=== PATIENT | female | born 1950 | race Caucasian/White ===

== ENCOUNTER 2017-02-08 16:32 | Outpatient (CLI) | payer MEDICARE | END 2017-02-08 16:33 | disposition home or self-care (01) | LOC: LAB 16:32 | PROVIDERS: ATTEND Internal Medicine | DX: M79.662 Pain in left lower leg (principal); M79.661 Pain in right lower leg | CPT/HCPCS: 36415; 85379 ==

== ENCOUNTER 2019-06-15 14:53 | Outpatient (CLI) | payer MEDICARE ==
--- NOTE | 2019-06-15 15:51 | Ultrasound Report ---
Reason: R LE EDEMA, R LE PAIN Procedure Date: 06/15/2019 Accession Number: [id number] / [id number] Procedure: US - Duplex Ext Veins Right CPT Code: FULL RESULT: EXAM: RIGHT LOWER EXTREMITY VENOUS ULTRASOUND EXAM DATE: 06/15/2019 03:07 PM. CLINICAL HISTORY: R LE EDEMA, R LE PAIN. COMPARISON: None. TECHNIQUE: Real-time sonographic vascular imaging was performed by the director of development and marketing through the lower extremity utilizing both color-flow and Doppler spectral analysis. Multiple assistance representative static images were saved for review. FINDINGS: Common Femoral Vein (CFV): Normal. CFV-GSV Junction: Normal. Profunda Femoral Vein (PFV): Normal. Femoral Vein (FV) Prox: Normal. Femoral Vein (FV) Mid: Normal. Femoral Vein (FV) Dist: Normal. Popliteal Vein: Normal. Posterior Tibial Veins: Normal. Peroneal Veins: Normal. Other: Laterally at the knee there is a fluid collection approximately 1 cm deep from the skin. This measures 3.6 x 0.8 x 2.4 cm. Correlate for bursitis. IMPRESSION: Negative for right lower extremity DVT. Possible bursitis at the lateral aspect of the knee. RADIA
== END 2019-06-15 14:54 | disposition home or self-care (01) ==
LOC: DI 14:53
PROVIDERS: ATTEND Internal Medicine
DX: M79.661 Pain in right lower leg (principal); R60.0 Localized edema

== ENCOUNTER 2019-11-05 07:00 | Outpatient (CLI) | payer MEDICARE ==
[2019-11-05 20:45] LABS: CANDIDA GROUP DNA NEGATIVE (NEGATIVE); CANDIDA KRUSEI DNA NEGATIVE (NEGATIVE); TRICHOMONAS VAGINALIS DNA NEGATIVE (NEGATIVE)
== END 2019-11-05 23:59 | disposition home or self-care (01) ==
LOC: LAB.R 07:00
PROVIDERS: ATTEND Advanced Practice Midwife
DX: N95.0 Postmenopausal bleeding (principal); N89.8 Other specified noninflammatory disorders of vagina
CPT/HCPCS: 87661; 87801

== ENCOUNTER 2019-11-27 07:00 | Outpatient (CLI) | payer MEDICARE | END 2019-11-27 23:59 | disposition home or self-care (01) | LOC: LAB.R 07:00 | PROVIDERS: ATTEND Obstetrics & Gynecology | DX: R39.9 Unspecified symptoms and signs involving the genitourinary system (principal) | CPT/HCPCS: 87086 ==

== ENCOUNTER 2019-12-07 11:35 | Outpatient (CLI) | payer MEDICARE ==
--- NOTE | 2019-12-07 12:45 | Ultrasound Report ---
Reason: VAGINAL BLEEDING Procedure Date: 12/07/2019 Accession Number: [id number] / [id number] Procedure: US - Pelvic w/Transvaginal CPT Code: Final Report FULL RESULT: EXAM: PELVIC ULTRASOUND EXAM DATE: 12/07/2019 11:48 AM. CLINICAL HISTORY: Postmenopausal bleeding. COMPARISON: None. TECHNIQUE: Realtime transabdominal pelvic scan performed to identify the uterus and adnexa and as an overview of other pelvic structures, followed by transvaginal scan to provide greater detail of the uterus and adnexa, with static image documentation. FINDINGS: Uterus: 6.2 x 3.3 x 4.7 cm, volume 49 cc. Retroverted position. Normal overall size and echotexture. Masses: Right fundal intramural fibroid 1.3 x 1.2 x 1.0 cm. Endometrium: 2 mm. No masses or thickening. A tiny ovoid subendometrial cyst at lower uterine segment anterior to the stripe measures 1 x 3 x 3 mm. Cervix: Several nabothian cysts present measuring up to 8 mm. Tiny echogenic foci are present adjacent to the endocervical canal, possibly calcifications. Right Ovary: 0.8 x 1.7 x 1.0 cm, volume 0.7 cc. Normal echotexture and blood flow. Left Ovary: 2.1 x 0.8 x 1.0 cm, volume 0.8 cc. Normal echotexture and blood flow. Free Fluid: None. Other: None. IMPRESSION: 1. No endometrial masses or thickening. 2. 1.3 cm intramural fibroid. 3. 3 mm subendometrial cyst lower uterine segment. 4. Nabothian cysts and calcifications in the cervix noted. 5. Adnexae within normal limits. RADIA
== END 2019-12-07 11:36 | disposition home or self-care (01) ==
LOC: DI 11:35
PROVIDERS: ATTEND Obstetrics & Gynecology
DX: D25.1 Intramural leiomyoma of uterus (principal); N88.8 Other specified noninflammatory disorders of cervix uteri
CPT/HCPCS: 76830; 76856

== ENCOUNTER 2020-07-07 10:07 | Outpatient (CLI) | payer MEDICARE | END 2020-07-07 10:08 | disposition critical access hospital (66) | LOC: EMS 10:07 | PROVIDERS: ATTEND Surgery | DX: R47.81 Slurred speech (principal); R53.1 Weakness; R29.810 Facial weakness; R32 Unspecified urinary incontinence; R51.9 Headache, unspecified | CPT/HCPCS: A0425; A0429 ==

== ENCOUNTER 2020-11-13 15:29 | Outpatient (CLI) | payer MEDICARE | END 2020-11-13 15:30 | disposition home or self-care (01) | LOC: CAM 15:29 | PROVIDERS: ATTEND Internal Medicine | DX: M79.602 Pain in left arm (principal) | CPT/HCPCS: 97810; 97811 ==

== ENCOUNTER 2020-11-20 14:50 | Outpatient (CLI) | payer MEDICARE | END 2020-11-20 14:51 | disposition home or self-care (01) | LOC: CAM 14:50 | PROVIDERS: ATTEND Internal Medicine | DX: M79.602 Pain in left arm (principal) | CPT/HCPCS: 97810; 97811 ==

== ENCOUNTER 2020-12-04 13:08 | Outpatient (CLI) | payer MEDICARE | END 2020-12-04 13:09 | disposition home or self-care (01) | LOC: CAM 13:08 | PROVIDERS: ATTEND Internal Medicine | DX: M79.602 Pain in left arm (principal) | CPT/HCPCS: 97810; 97811 ==

== ENCOUNTER 2021-01-08 14:46 | Outpatient (CLI) | payer MEDICARE | END 2021-01-08 14:47 | disposition home or self-care (01) | LOC: CAM 14:46 | PROVIDERS: ATTEND Internal Medicine | DX: M79.602 Pain in left arm (principal) | CPT/HCPCS: 97810; 97811 ==

== ENCOUNTER 2021-02-19 13:17 | Outpatient (CLI) | payer MEDICARE ==
--- NOTE | 2021-02-20 11:13 | Mammography Report ---
BILATERAL DIGITAL SCREENING MAMMOGRAM 3D/2D: 02/19/2021 CLINICAL: Routine screening. Comparison is made to exams dated: 04/22/2016 mammogram, 07/11/2013 mammogram, and 09/02/2010 mammogram - [facility]. There are scattered fibroglandular elements in both breasts. No significant masses, calcifications, or other findings are seen in either breast. There has been no significant interval change. IMPRESSION: NEGATIVE There is no mammographic evidence of malignancy. A 1 year screening mammogram is recommended. This exam was interpreted at Station ID: [id number]. NOTE: For mammograms, a report in lay terms will be sent to the patient. Approximately 15% of breast malignancies will not be visualized mammographically. In the management of a palpable breast mass, a negative mammogram must not discourage biopsy of a clinically suspicious lesion. Electronically Signed By: Lebron Jones M.D. ar/huyrad:02/19/2021 14:05:32 ACR BI-RADS Category 1: Negative 3341F PARENCHYMAL PATTERN: (A) - The breast(s) demonstrate(s) scattered fibroglandular densities. BI-RADS CATEGORY: (1) - 1 RECOMMENDATION: (ANNUAL) - Recommend routine annual screening mammography. [id number] 1 year screening LATERALITY: (B)
== END 2021-02-19 13:18 | disposition home or self-care (01) ==
LOC: DI 13:17
DX: Z12.31 Encounter for screening mammogram for malignant neoplasm of breast (principal)

== ENCOUNTER 2021-05-14 16:08 | Outpatient (CLI) | payer MEDICARE | END 2021-05-14 16:09 | disposition home or self-care (01) | LOC: COV 16:08 | PROVIDERS: ATTEND Family Medicine | DX: Z20.822 Contact with and (suspected) exposure to COVID-19 (principal) ==

== ENCOUNTER 2021-06-18 12:07 | Outpatient (CLI) | payer MEDICARE | END 2021-06-18 12:08 | disposition critical access hospital (66) | LOC: EMS 12:07 | DX: Z04.3 Encounter for examination and observation following other accident (principal); M25.552 Pain in left hip | CPT/HCPCS: A0425; A0429 ==

== ENCOUNTER 2021-06-18 12:17 | Emergency (ER) | payer MEDICARE ==
--- NOTE | 2021-06-18 12:26 | ED Physician Documentation ---
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 The patient states that she was getting out of bed and slipped on her laminate floor and fell squarely onto the left hip. She did not hit her head, denies any other injuries including head, neck, shoulder, back or other extremity injuries. Her is a physical therapist and they were monitoring at home because he did not feel it was broken but the pain persisted into the afternoon therefore she came into the ER for evaluation. Review of Systems Ten Systems: 10 systems reviewed and negative Musculoskeletal: reports: Extremity pain, Joint pain, Pain with weight bearing. denies: Neck pain, Back pain, Extremity swelling, Joint swelling PD PAST MEDICAL HISTORY - Past Medical History Past Medical History: Yes Cardiovascular: Hypertension (on HCTZ only) Respiratory: None Neuro: None Endocrine/Autoimmune: None GI: None SUPERVISOR ORDER TAKERS: None : None HEENT: None Psych: None Musculoskeletal: None Derm: None - Past Surgical History Past Surgical History: No - Present Medications Home Medications: Ambulatory Orders Medication Instructions Recorded Confirmed hydroCHLOROthiazide 07/07/20 [Hydrochlorothiazide] - Allergies Allergies/Adverse Reactions: Allergies Allergy/AdvReac Type Severity Reaction Status Date / Time Sulfa (Sulfonamide Allergy Unknown Verified 06/18/21 12:25 Antibiotics) - Social History Does the pt smoke?: No Smoking Status: Never smoker Does the pt drink ETOH?: No Does the pt have substance abuse?: No - Immunizations Immunizations are current?: Yes - POLST Patient has POLST: No POLST Status: Full Code PD ED PE NORMAL - Vitals Vital signs reviewed: Yes - General General: Alert and oriented X 3, No acute distress, Well developed/nourished - HEENT HEENT: Atraumatic, Pharynx benign - Neck Neck: Supple, no meningeal sign, No bony TTP, No JVD - Cardiac Cardiac: RRR, No murmur - Respiratory Respiratory: No respiratory distress, Clear bilaterally - Abdomen Abdomen: Normal bowel sounds, Soft, Non tender, Non distended - Back Back: No spinal TTP - Derm Derm: Normal color, Warm and dry, No rash - Extremities Extremities: No deformity, No edema, No calf tenderness / cord, Other (Tender left hip, no obvious deformity, no shortening or rotation. Normal flexion extension of lower extremities however pain with movement of the left hip. Unable to bear weight due to pain left hip). No: No tenderness to palpate, Normal ROM s pain - Neuro Neuro: Alert and oriented X 3 Eye Opening: Spontaneous Motor: Obeys Commands Verbal: Oriented GCS Score: 15 - Psych Psych: Normal mood, Normal affect Results - Vitals Vitals: Vital Signs - 24 hr 06/18/21 12:21 Temperature 36.2 C L Heart Rate 78 Respiratory 18 Rate Blood Pressure 137/85 H O2 Saturation 99 Oxygen O2 Source Room air - Labs Labs: Laboratory Tests 06/18/21 06/18/21 13:40 13:40 WBC 8.7 RBC 4.63 Hgb 14.2 Hct 42.4 MCV 91.6 MCH 30.7 MCHC 33.5 RDW 12.9 Plt Count 181 MPV 10.2 Neut # (Auto) 6.6 Lymph # (Auto) 1.3 [place] # (Auto) 0.7 Eos # (Auto) 0.1 Baso # (Auto) 0.0 Absolute Nucleated RBC 0.00 Nucleated RBC % 0.0 Sodium 140 Potassium 3.6 Chloride 104 Carbon Dioxide 26 Anion Gap 10.0 BUN 14 Creatinine 0.5 Estimated GFR (MDRD) 122 Glucose 108 H Calcium 9.1 PD MEDICAL DECISION MAKING - ED course Complexity details: reviewed results, re-evaluated patient, considered differential, d/w patient, d/w family ED course: 70 year old female who fell while getting out of bed today and sustained a left subtrochanteric femur fracture. We unfortunately do not have Ortho on-call today or tomorrow therefore I spoke with the orthopedic surgeon at [facility], Dr. Goldman, who reviewed images and kindly will accept the patient if there are beds available under hospitalist service. Will check with hospitalist team at [facility]. Patient to be n.p.o. after midnight. We will continue as needed pain medication and supportive measures here. Departure - Departure Disposition: 02 Transfer Acute Care Hosp Clinical Impression: Trochanteric fracture of left femur Qualifiers: Encounter type: initial encounter Fracture type: closed Qualified Code(s): S72.102A - Unspecified trochanteric fracture of left femur, initial encounter for closed fracture Condition: Good
--- NOTE | 2021-06-18 13:14 | XRAY Report ---
PROCEDURE: Hip w/Pelvis 2-3V LT INDICATIONS: fall, left hip pain TECHNIQUE: AP pelvis with lateral view(s) of the bilateral hip(s). COMPARISON: None. FINDINGS: Bones: There is a nondisplaced trochanteric/subtrochanteric fracture of the left hip. No dislocations . Pelvic ring appears intact. No suspicious bony lesions. Soft tissues: The visualized bowel gas pattern is normal. No suspicious soft tissue calcifications. IMPRESSION: Nondisplaced trochanteric/subtrochanteric fracture of the left hip. Reviewed by: Randall Leonard MD on 06/18/2021 1:13 PM PDT Approved by: Randall Leonard MD on 06/18/2021 1:13 PM PDT Station ID: [id number]
[2021-06-18] MEDS ORDERED: MORPHINE 2 MG/ML CARPUJECT IVP STA (13:20)
[2021-06-18] MEDS ORDERED: ONDANSETRON 4 MG/2 ML VIAL IVP STA (13:20)
[2021-06-18 13:50] LABS: BASOPHILS % (AUTO) 0.5 %; EOSINOPHILS # (AUTO) 0.1 10^3/uL (0.0-0.7); HCT - HEMATOCRIT 42.4 % (37.0-47.0); HGB - HEMOGLOBIN 14.2 g/dL (12.0-16.0); LYMPHOCYTES # (AUTO) 1.3 10^3/uL (1.5-3.5); LYMPHOCYTES % (AUTO) 14.9 %; MEAN CORPUSCULAR HEMOGLOBIN 30.7 pg (27.0-31.0); MEAN CORPUSCULAR HGB CONC 33.5 g/dL (32.0-36.0); MEAN CORPUSCULAR VOLUME 91.6 fL (81.0-99.0); MEAN PLATELET VOLUME 10.2 fL (7.9-10.8); MONOCYTES # (AUTO) 0.7 10^3/uL (0.0-1.0); MONOCYTES % (AUTO) 7.6 %; NEUTROPHILS # (AUTO) 6.6 10^3/uL (1.5-6.6); NEUTROPHILS % (AUTO) 75.7 %; PLT - PLATELET COUNT 181 10^3/uL (130-450); RED BLOOD COUNT 4.63 10^6/uL (4.20-5.40); RED CELL DISTRIBUTION WIDTH 12.9 % (12.0-15.0); WHITE BLOOD COUNT 8.7 x10^3/uL (4.8-10.8)
[2021-06-18 14:02] LABS: CALCIUM 9.1 mg/dL (8.5-10.3); CREATININE 0.5 mg/dL (0.4-1.0); POTASSIUM 3.6 mmol/L (3.5-5.0)
[2021-06-18 16:11] LABS: B. PARAPERTUSSIS- RESP PCR PAN NOT DETECTED; B. PERTUSSIS- RESP PCR PANEL NOT DETECTED; C. PNEUMONIAE- RESP PCR PANEL NOT DETECTED; CORONAVIRUS 229E-RESP PCR NOT DETECTED; CORONAVIRUS HKU1-RESP PCR NOT DETECTED; CORONAVIRUS NL63-RESP PCR NOT DETECTED; CORONAVIRUS OC43-RESP PCR NOT DETECTED; HUMAN METAPNEUMOVIRUS NOT DETECTED; INFLUENZA A- RESP PCR PANEL NOT DETECTED; INFLUENZA B - RESP PCR PANEL NOT DETECTED; M. PNEUMONIAE- RESP PCR PANEL NOT DETECTED; PARAINFLUENZA VIRUS 1 NOT DETECTED; PARAINFLUENZA VIRUS 2 NOT DETECTED; PARAINFLUENZA VIRUS 3 NOT DETECTED; PARAINFLUENZA VIRUS 4 NOT DETECTED; RHINOVIRUS/ENTEROVIRUS NOT DETECTED; RSV- RESP PCR PANEL NOT DETECTED; SARS-CoV-2 -RESP PCR PANEL NOT DETECTED
[2021-06-18] MEDS ORDERED: MORPHINE 2 MG/ML CARPUJECT IVP PRN (16:14)
[2021-06-18 19:19] VITALS: BP 138/92
== END 2021-06-18 19:17 | disposition short-term general hospital (02) ==
LOC: ED 12:17
DX: S72.102A Unspecified trochanteric fracture of left femur, initial encounter for closed fracture (principal); W01.0XXA Fall on same level from slipping, tripping and stumbling without subsequent striking against object, initial encounter; Y93.89 Activity, other specified; Y92.003 Bedroom of unspecified non-institutional (private) residence as the place of occurrence of the external cause; Z20.822 Contact with and (suspected) exposure to COVID-19
CPT/HCPCS: 0202U; 36415; 80048; 85025; 96374; 96375; 96376; 99283

== ENCOUNTER 2021-06-18 19:16 | Outpatient (CLI) | payer MEDICARE | END 2021-06-18 19:17 | disposition short-term general hospital (02) | LOC: EMS 19:16 | PROVIDERS: ATTEND Emergency Medicine | DX: S72.102A Unspecified trochanteric fracture of left femur, initial encounter for closed fracture (principal); W01.0XXA Fall on same level from slipping, tripping and stumbling without subsequent striking against object, initial encounter; Y93.01 Activity, walking, marching and hiking; Y92.009 Unspecified place in unspecified non-institutional (private) residence as the place of occurrence of the external cause | CPT/HCPCS: A0425; A0428 ==

== ENCOUNTER 2021-06-29 12:08 | Outpatient (CLI) | payer MEDICARE ==
--- NOTE | 2021-06-29 12:58 | XRAY Report ---
PROCEDURE: Hip w/Pelvis 2-3V LT INDICATIONS: Left HIP PAIN AFTER FALL TECHNIQUE: AP pelvis with lateral view(s) of the left hip(s). COMPARISON: June 18, 2021. FINDINGS: BONES/JOINTS: The fracture line is not well seen. An intramedullary aminta traversing the right proximal femur. No appreciable lucency to suggest loosening. No widening of the pubic symphysis. The sacroiliac joints are symmetric. The femoral heads are normal ly seated within the acetabulum. SOFT TISSUES: No focal abnormality. IMPRESSION: 1.No acute osseous abnormality of the pelvis. Reviewed by: Homar Walsh MD on 06/29/2021 12:57 PM PDT Approved by: Homar Walsh MD on 06/29/2021 12:57 PM PDT Station ID: [id number]
== END 2021-06-29 12:09 | disposition home or self-care (01) ==
LOC: DI 12:08
PROVIDERS: ATTEND Internal Medicine
DX: M25.552 Pain in left hip (principal); Z91.81 History of falling; Z87.81 Personal history of (healed) traumatic fracture

== ENCOUNTER 2021-10-26 15:11 | Outpatient (CLI) | payer MEDICARE ==
--- NOTE | 2021-10-26 17:23 | DEXA Report ---
PROCEDURE: Dexa Spine and/or Hip INDICATIONS: OSTEOPENIA TECHNIQUE: Dual energy x-ray absorptiometry (DXA) was performed on a [employer] System. Regions measur ed are the AP Spine, femoral neck, and if needed forearm. COMPARISON: DEXA 07/16/2016. FINDINGS: Lumbar Spine: Bone Mineral Density 0.973 g/cm/cm,T score -1.7, osteopenia Left Hip: Bone Mineral Density 0.590 g/cm/cm,T score -3.2, osteoporosis Left Femoral Neck: Bone Mineral Density 0.644 g/cm/cm, T score -2.8, osteoporosis (T score greater or equal to -1.0: NORMAL) (T score from -1.1 to -2.4: OSTEOPENIA) (T score less than or equal to -2.5 to: OSTEOPOROSIS) Impression: Decreased bone mineral density within the osteoporotic range at the left hip and left femoral neck an d within the osteopenic range at the lumbar spine. Bone marrow density has decreased when compared to the prior exam from 07/16/2016. Patients with diagnosis of osteoporosis or osteopenia should have regular bone mineral density assess ment. For those eligible for Medicare, routine testing is allowed once every 2 years. Testing frequ ency can be increased for patients who have rapidly progressing disease or for those who are receivin g medical therapy to restore bone mass. Reviewed by: Lebron Jones MD on 10/26/2021 5:22 PM PST Approved by: Lebron Jones MD on 10/26/2021 5:22 PM PST Station ID: [id number]
== END 2021-10-26 15:12 | disposition home or self-care (01) ==
LOC: DI 15:11
PROVIDERS: ATTEND Internal Medicine
DX: M81.0 Age-related osteoporosis without current pathological fracture (principal)

== ENCOUNTER 2022-02-09 13:24 | Outpatient (CLI) | payer MEDICARE | END 2022-02-09 13:25 | disposition home or self-care (01) | LOC: LAB 13:24 | PROVIDERS: ATTEND Internal Medicine | DX: I10 Essential (primary) hypertension (principal); F32.A Depression, unspecified; M21.40 Flat foot [pes planus] (acquired), unspecified foot; R53.83 Other fatigue; M81.0 Age-related osteoporosis without current pathological fracture | CPT/HCPCS: 82306 ==

== ENCOUNTER 2022-03-15 13:09 | Outpatient (CLI) | payer MEDICARE ==
--- NOTE | 2022-03-26 12:34 | Mammography Report ---
BILATERAL DIGITAL SCREENING MAMMOGRAM 3D/2D: 03/15/2022 CLINICAL: Routine screening. Comparison is made to exams dated: 02/19/2021 mammogram, 04/22/2016 mammogram, 07/11/2013 mammogram, a nd 09/02/2010 mammogram - [facility]. There are scattered fibroglandular elements in both breasts. No significant masses, calcifications, or other findings are seen in either breast. There has been no significant interval change. IMPRESSION: NEGATIVE There is no mammographic evidence of malignancy. A 1 year screening mammogram is recommended. Based on the Tyrer Cuzick model (a risk assessment model) the patients lifetime risk is 5.7% and her 10 year risk is 3.9%. According to the ACR, ACS, and NCCN guidelines, an annual breast MRI exam fabi g with mammogram is recommended if the patients lifetime risk is 20% or greater. This exam was interpreted at Station ID: [id number]. NOTE: For mammograms, a report in lay terms will be sent to the patient. Approximately 15% of breast malignancies will not be visualized mammographically. In the management of a palpable breast mass, a negative mammogram must not discourage biopsy of a clinically suspicious lesion. Electronically Signed By: Rehan Land acr/penrad:03/25/2022 10:12:45 ACR BI-RADS Category 1: Negative 3341F PARENCHYMAL PATTERN: (A) - The breast(s) demonstrate(s) scattered fibroglandular densities. BI-RADS CATEGORY: (1) - 1 RECOMMENDATION: (ANNUAL) - Recommend routine annual screening mammography. [id number] 1 year screening LATERALITY: (B)
== END 2022-03-15 13:10 | disposition home or self-care (01) ==
LOC: DI 13:09
PROVIDERS: ATTEND Internal Medicine
DX: Z12.31 Encounter for screening mammogram for malignant neoplasm of breast (principal)

== ENCOUNTER 2022-07-07 09:54 | Observation (INO) | payer MEDICARE ==
[2022-07-07 10:20] LABS: BASOPHILS # (AUTO) 0.1 10^3/uL (0.0-0.1); BASOPHILS % (AUTO) 0.9 %; EOSINOPHILS # (AUTO) 0.2 10^3/uL (0.0-0.7); EOSINOPHILS % (AUTO) 3.5 %; HCT - HEMATOCRIT 44.7 % (37.0-47.0); HGB - HEMOGLOBIN 14.5 g/dL (12.0-16.0); LYMPHOCYTES % (AUTO) 30.4 %; MEAN CORPUSCULAR HEMOGLOBIN 30.2 pg (27.0-31.0); MEAN CORPUSCULAR HGB CONC 32.4 g/dL (32.0-36.0); MEAN CORPUSCULAR VOLUME 93.1 fL (81.0-99.0); MEAN PLATELET VOLUME 10.2 fL (7.9-10.8); MONOCYTES # (AUTO) 0.5 10^3/uL (0.0-1.0); MONOCYTES % (AUTO) 8.3 %; NEUTROPHILS # (AUTO) 3.7 10^3/uL (1.5-6.6); NEUTROPHILS % (AUTO) 56.7 %; PLT - PLATELET COUNT 191 10^3/uL (130-450); WHITE BLOOD COUNT 6.5 x10^3/uL (4.8-10.8)
[2022-07-07 10:38] LABS: ALBUMIN/GLOBULIN RATIO 1.1 (1.0-2.2); BILIRUBIN,TOTAL 1.6 mg/dL (0.2-1.0); CREATININE 0.6 mg/dL (0.4-1.0); POTASSIUM 3.8 mmol/L (3.5-5.0); TOTAL PROTEIN 7.7 g/dL (6.7-8.2)
--- NOTE | 2022-07-07 10:40 | CT Report ---
PROCEDURE: Head W/O Stroke Protocol INDICATIONS: L sided weakness; started 0900 TECHNIQUE: Noncontrast 4.5 mm thick angled axial sections acquired from the foramen magnum to the vertex, with c oronal reformats. For radiation dose reduction, the following was used: automated exposure control, adjustment of mA and/or kV according to patient size. COMPARISON: CT orbits dated 11/15/2014 FINDINGS: Image quality: Excellent. CSF spaces: Basal cisterns are patent. No extra-axial fluid collections. Ventricles are normal in size and shape. Brain: No midline shift. No intracranial masses or hemorrhage. Aldrich-white matter interface is norm al. Extensive periventricular and deep white matter hypodensities are seen suggestive of chronic sma ll vessel ischemic changes. Superimposed acute infarction cannot be entirely excluded. Skull and face: Calvarium and visualized facial bones are intact, without suspicious lesions. Sinuses: Visualized sinuses and mastoids are clear. IMPRESSION: 1. No CT evidence of acute intracranial abnormalities. No contraindication for TPA therapy. 2. Extensive periventricular and deep white matter chronic small vessel ischemic changes. Superimpose d acute infarction cannot be entirely excluded. If indicated, MRI of brain can be done for further ev aluation of acute infarctions. Findings were reported to Dr. Juarez in the ER at 10:37 AM on 07/07/2022. This study fulfills neurological imaging criteria for inclusion or exclusion of acute stroke therapie s based on available published neurological imaging guidelines. Reviewed by: Joselito Hester MD on 07/07/2022 10:38 AM PST Approved by: Joselito Hester MD on 07/07/2022 10:38 AM PST Station ID: [id number]
--- NOTE | 2022-07-07 11:01 | CT Report ---
PROCEDURE: ANGIO HEAD W/WO INDICATIONS: L sided weakness CONTRAST: 80ml Omnipaque 300 TECHNIQUE: Precontrast 4.5 mm thick angled axial sections acquired from the foramen magnum to the vertex. Afte r the administration of intravenous contrast, 1 mm thick sections acquired through the [place] of [place] is. Postcontrast 4.5 mm thick sections then re-acquired from the foramen magnum to the vertex. 3-di mensional pmcsufc-hxfrxggff-fcyqzylfkg (MIP) and/or volume rendering reformats were acquired of the c entral intracranial vasculature. For radiation dose reduction, the following was used: automated ex posure control, adjustment of mA and/or kV according to patient size. COMPARISON: CT head, CTA neck 07/07/2022 FINDINGS: Image quality: Excellent. Anterior circulation: Intracranial internal carotid arteries are normal in size and flow. The flow within the paired anterior cerebral arteries is normal and symmetric. The flow within the middle cer ebral arteries is normal and symmetric. The anterior communicating artery is seen. No aneurysms are seen. Posterior circulation: Vertebral arteries are codominant. Visualized portions of the vertebral arteri es demonstrate normal caliber, and join to form a normal appearing basilar artery. Flow within the p osterior cerebral arteries is normal and symmetric. No aneurysms are seen. The ventricular system and cortical sulci demonstrate atrophy, consistent for patient's stated age. There are areas of hypodensity in the periventricular and subcortical white matter. There is no acut e intra or extra-axial fluid collection. No acute hemorrhage, mass lesion or midline shift. Brainst em is unremarkable. Globes are symmetrical. Sinuses are aerated. Osseous structures are intact. IMPRESSION: No areas of hemodynamically significant stenosis, vascular occlusion or aneurysmal dilation within th e anterior circulation. No areas of hemodynamically significant stenosis, vascular occlusion or aneurysmal dilation within th e posterior circulation. Reviewed by: Eri Montesinos MD on 07/07/2022 11:00 AM PST Approved by: Eri Montesinos MD on 07/07/2022 11:00 AM PST Station ID: [id number]
[2022-07-07] MEDS ORDERED: iohexoL-300 100 ML VIAL ONE (11:07)
--- NOTE | 2022-07-07 11:10 | CT Report ---
PROCEDURE: ANGIO NECK W INDICATIONS: L sided weakness CONTRAST: 80ml Omnipaque 300 TECHNIQUE: After the administration of intravenous contrast, 1.5 mm axial sections acquired from the aortic arch to the [place] of [place]. Coronal 3-D maximum intensity projection (MIP) and/or volume rendering ref ormats were then performed. For radiation dose reduction, the following was used: automated exposur e control, adjustment of mA and/or kV according to patient size. COMPARISON: CT head, CTA head 07/07/2022 FINDINGS: Image quality: Excellent. Carotid system: The great vessels demonstrate a conventional anatomy as they arise from the aortic a [facility]. The origins of the common carotid arteries appear patent. The common carotid arteries demonstr ate normal calibers and courses. The bifurcation regions appear normal bilaterally. The internal ca rotid arteries demonstrate normal caliber and course. Posterior circulation: The origins of the vertebral arteries appear patent. The more superior porti ons of the vertebral arteries demonstrate normal course and caliber. They join to form a normal appe aring basilar artery. Subclavian vasculature: There is focal narrowing of approximately 60% of the left subclavian artery a pproximately 2.5 cm from the origin. It is seen on series 4 image 121, series 2 image 74 as well as s eries 5 image 87. Narrowing appears to be secondary to mass effect. Soft tissues: Visualized neck soft tissues demonstrate no suspicious abnormalities. The thyroid is normal in size and there are no incidental findings. Bones: No suspicious bony lesions. Visualized cervical spine appears normally aligned. IMPRESSION: Focal area of approximately 60% narrowing within the left subclavian as described above. Appearance o f narrowing may be secondary to thrombosis of indeterminate age or less likely external mass which is not well visualized and felt to be less likely. The estimate of stenosis included in the report of the imaging study was calculated using the NASCET method CLINICAL RECOMMENDATION STATEMENTS: In patients <35 years with an ITN detected on CT, MRI, or extrathyroidal ultrasound, the Committee re commends further evaluation with dedicated thyroid ultrasound if the nodule is "e1 cm and has no susp icious imaging features, and if the patient has normal life expectancy. In patients "e35 years with an ITN detected on CT, MRI, or extrathyroidal ultrasound, the Committee r ecommends further evaluation with dedicated thyroid ultrasound if the nodule is "e1.5 cm and has no s uspicious imaging features, and if the patient has normal life expectancy. (ACR, 2014) Reviewed by: Eri Montesinos MD on 07/07/2022 11:08 AM PST Approved by: Eri Montesinos MD on 07/07/2022 11:08 AM PST Station ID: [id number]
[2022-07-07] MEDS: ASPIRIN CHEW 81 MG TABLET PO SCH (11:19)
[2022-07-07 11:28] LABS: INR 1.1 (0.8-1.2); PT - PROTHROMBIN TIME 12.1 secs (9.9-12.6)
--- NOTE | 2022-07-07 12:02 | ED Physician Documentation ---
History of Present Illness - Stated complaint Stated Complaint: WEAKNESS/SLURING - Chief complaint Chief Complaint: Neuro - History obtained from History obtained from: Patient, Family - Additonal information Additional information: Patient is a 71-year-old female with a history of an intracranial hemorrhage in 2019 presenting for evaluation of slurred speech and left sided weakness starting at 9:00 while she was at a physical therapy appointment. She does report a history of weakness in her left leg from her previous stroke but otherwise no residual deficits. Her symptoms have improved since onset. She denies headache, chest pain, difficulty breathing, abdominal pain. She denies visual disturbances. She does not take a blood thinner. She was feeling well this morning when she woke up and went to her physical therapy appointment.While at PT she noticed that she was having trouble using her left arm And her physical therapist noted that she was having trouble with her speech. Review of Systems Constitutional: denies: Fever Nose: denies: Congestion Throat: denies: Sore throat Cardiac: denies: Chest pain / pressure Respiratory: denies: Dyspnea GI: denies: Abdominal Pain : denies: Dysuria Musculoskeletal: denies: Back pain Neurologic: reports: Focal weakness, Difficulty speaking. 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 : None HEENT: None Psych: None Musculoskeletal: None Derm: None - Past Surgical History Past Surgical History: No - Present Medications Home Medications: Ambulatory Orders Medication Instructions Recorded Confirmed Calcium Carbonate [Tums (Calcium 500 mg PO Q48H 07/07/22 07/07/22 Carbonate 500mg)] [place]-3/Dha/Epa/Fish Oil [Fish Oil 1 cap PO Q48H 07/07/22 07/07/22 1,000 mg Softgel] Sertraline [Zoloft] 50 mg PO DAILY 07/07/22 07/07/22 amLODIPine [Norvasc] 1 tab PO HS 07/07/22 07/07/22 lisinopriL [Zestril] 5 mg PO HS 07/07/22 07/07/22 - Allergies Allergies/Adverse Reactions: Allergies Allergy/AdvReac Type Severity Reaction Status Date / Time Sulfa (Sulfonamide Allergy Unknown Verified 06/18/21 12:25 Antibiotics) - Social History Does the pt smoke?: No Smoking Status: Never smoker Does the pt drink ETOH?: No Does the pt have substance abuse?: No - Immunizations Immunizations are current?: Yes - POLST Patient has POLST: No POLST Status: Full Code PD ED PE NORMAL - General General: Alert and oriented X 3, No acute distress, Well developed/nourished - HEENT HEENT: Atraumatic, Moist mucous membranes - Neck Neck: Supple, no meningeal sign - Cardiac Cardiac: Strong equal pulses (Irregular rhythm, regular rate) - Respiratory Respiratory: No respiratory distress, Clear bilaterally - Abdomen Abdomen: Soft, Non tender - Derm Derm: Warm and dry - Extremities Extremities: No edema - Neuro Neuro: Alert and oriented X 3, No motor deficit, No sensory deficit. 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- 12 intact (Left-sided facial droop), Normal speech (Slightly slurred speech) Results - Vitals Vitals: Vital Signs - 24 hr 07/07/22 07/07/22 07/07/22 10:04 10:48 11:19 Temperature 37.0 C Heart Rate 75 63 70 Respiratory 19 17 14 Rate Blood Pressure 148/91 H 140/92 H 151/89 H O2 Saturation 100 99 99 07/07/22 07/07/22 11:56 12:13 Temperature Heart Rate 70 71 Respiratory 18 14 Rate Blood Pressure 118/101 H 140/82 H O2 Saturation 97 99 Oxygen O2 Source Room air - EKG (time done) 1038 Rate: Rate (enter#) (69) Rhythm: Other (Sinus Arrhythmia) Ischemia: No: ST elevation c/w ischemia Computer interpretation: Disagree with computer 1203 Rate: Rate (enter#) (69) Rhythm: Other (Sinus arrhythmia) Ischemia: No: ST elevation c/w ischemia, ST depression - Labs Labs: Laboratory Tests 07/07/22 07/07/22 07/07/22 10:11 10:11 10:13 WBC 6.5 RBC 4.80 Hgb 14.5 Hct 44.7 MCV 93.1 MCH 30.2 MCHC 32.4 RDW 13.0 Plt Count 191 MPV 10.2 Neut # (Auto) 3.7 Lymph # (Auto) 2.0 Nolan # (Auto) 0.5 Eos # (Auto) 0.2 Baso # (Auto) 0.1 Absolute Nucleated RBC 0.00 Nucleated RBC % 0.0 PT INR Sodium 140 Potassium 3.8 Chloride 105 Carbon Dioxide 28 Anion Gap 7.0 BUN 18 Creatinine 0.6 Estimated GFR (MDRD) 99 Glucose 83 POC Whole Bld Glucose 80 Calcium 9.0 Total Bilirubin 1.6 H AST 15 ALT 13 Alkaline Phosphatase 72 Total Protein 7.7 Albumin 4.0 Globulin 3.7 Albumin/Globulin Ratio 1.1 Lipase 57 H 07/07/22 11:00 WBC RBC Hgb Hct MCV MCH MCHC RDW Plt Count MPV Neut # (Auto) Lymph # (Auto) Nolan # (Auto) Eos # (Auto) Baso # (Auto) Absolute Nucleated RBC Nucleated RBC % PT 12.1 INR 1.1 Sodium Potassium Chloride Carbon Dioxide Anion Gap BUN Creatinine Estimated GFR (MDRD) Glucose POC Whole Bld Glucose Calcium Total Bilirubin AST ALT Alkaline Phosphatase Total Protein Albumin Globulin Albumin/Globulin Ratio Lipase PD MEDICAL DECISION MAKING - ED course Complexity details: reviewed results, re-evaluated patient, d/w patient ED course: Patient presenting for evaluation of left-sided weakness, abnormal speech and facial droop. Has a history of an intracranial hemorrhage. NIH of 2 on initial exam. She would not be a tPA candidate based on the history of the intracranial bleed. She was seen by teleneurology given her onset of symptoms.There were no signs of a large vessel occlusion.Patient to be admitted to the hospitalist service for further management with echo and MRI ordered. Initial EKG was read by the machine as atrial fibrillation but I do not believe that she was in A. fib. 1232 - D/W Dr. Britt - Who will admit the patient for observation. Departure - Departure Disposition: ED Place in Observation Clinical Impression: Transient ischemic attack (TIA) Condition: Stable Discharge Date/Time: 07/07/22 13:36 NIHSS - Level of Consciousness Level of consciousness: (0) Alert, Keenly responsive LOC Questions: (0) Answers both Q's correct LOC Commands: (0) Performs both correctly - Gaze Best Gaze: (0) Normal - Visual Visual: (0) No loss - Facial Palsy Facial Palsy: (1) Minor paralysis - Motor Arms (both separate) Motor Arm (right): (0) No drift Motor Arm (left): (0) No drift - Motor Legs (both separate) Motor Leg (right): (0) No drift Motor Leg (left): (0) No drift - Limb Ataxia Limb Ataxia: (0) Absent - Sensory Sensory: (0) Normal - Best Language Best Language: (0) No aphasia - Dysarthria Dysarthria: (1) [id number] dysarthria - Extinction and Inattention (formally neg Extinction and inattention: (0) No abnormality - Total Score/Results Total Score/Result: 2
[2022-07-07] MEDS ORDERED: SODIUM CHLORIDE FLUSH 0.9% 10 ML SYRINGE IVP PRN (12:31)
[2022-07-07] MEDS ORDERED: ONDANSETRON ODT 4 MG TABLET TL PRN (12:31)
[2022-07-07] MEDS ORDERED: oxyCODONE 5 MG TABLET PO PRN (12:31)
[2022-07-07] MEDS ORDERED: ACETAMINOPHEN 325 MG TABLET PO PRN (12:31)
[2022-07-07] MEDS ORDERED: ONDANSETRON 4 MG/2 ML VIAL IVP PRN (12:31)
--- NOTE | 2022-07-07 13:22 | MRI Report ---
PROCEDURE: MRI brain without contrast INDICATIONS: L sided weakness/eval for CVA TECHNIQUE: Noncontrast axial T1 spin echo, axial T2 fast spin echo, sagittal and axial FLAIR, coronal T2 fast sp in echo, axial gradient echo, axial diffusion and ADC through the brain. COMPARISON: None. FINDINGS: Image quality: Excellent. CSF Spaces: Basal cisterns are patent. No extra-axial fluid collections. Ventricles are normal in size and shape. Brain: No intracranial masses or hemorrhage. [place]/white matter interface is normal. Brainstem appe ars normal. Diffusion-weighted images demonstrate no acute infarct. Moderate atrophy and multifocal white matter chronic ischemic change present. Old blood products noted in the right lentiform nucleus reflecting sequela from remote intracranial hemorrhage. Normal intravascular flow voids are present . Skull and face: Calvarium has normal marrow signal. Orbits appear normal. Sinuses: Sinuses and mastoids are clear. IMPRESSION: 1. Moderate atrophy and chronic ischemic change without acute infarct, acute hemorrhage or mass lesio n. 2. Old blood products in the right basal ganglia consistent with sequelae from remote intracranial he morrhage. Reviewed by: Ruddy Leong MD on 07/07/2022 12:21 PM [place] Approved by: Ruddy Leong MD on 07/07/2022 12:21 PM [facility] Station ID: [id number]
--- NOTE | 2022-07-07 14:32 | HISTORY & PHYSICAL EXAMINATION ---
Chief Complaint - Chief Complaint Chief Complaint: Facial droop and slurred speech History of Present Illness - Admitted From Admitted From:: ED - History Obtained From Records Reviewed: From [facility] History obtained from: Patient - History of Present Illness HPI Comment/Other: Ms. Mark is a 71 year old woman with history of hemorrhagic stroke in 2019 and hypertension, who is being admitted from ED after experiencing symptoms of TIA this morning. 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 While attending a class today at around 9AM, her parent trainer noticed she had a left sided facial droop. Her friends in the class noticed she also had slurred speech. She attempted to grab onto an exercise bar and was unable to due to left arm weakness. She says the symptoms developed suddenly and she had been feeling well up until that point. She was then brought to the ED by her where she was evaluated. A head CT was done showing no evidence of acute intracranial abnormalities. She was given 81mg of aspirin as well. She visited her primary care provider Dr. Nenita Rao this past Tuesday and told her doctor, "This is the best I have ever felt in about a year." The only new event she noted prior to this morning was that she drank a glass of wine la st night at a dinner alliance party and she had some mild shuffling while walking along with some new foot pain on the top of her left foot. She says she is feeling much better now except for tingling in her left foot. She does have residual left leg weakness from her stroke in 2019. However, she notes that her left leg symptoms had been improving until she got cranial sacral therapy on 06/29, after which she says the symptoms worsened again. She has received cranial sacral therapy four times after starting it last month, and she says this therapy really helps her a lot and said it made her left leg feel stronger at one point except for her most recent treatment. She has also started using music glove hand therapy within the past month for the weakness in her left hand following her previous stroke. She reports having history of cataracts and difficulty with distance vision at baseline, but is not experiencing any new changes to her vision today. She does not have a fever, headache, chest pain, shortness of breath, or dizziness. She does not have any new acute pain anywhere else. 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 Her grandfathers both due to MIs. Her younger brother also had a stroke at 64 years old. Living arrangement: At home Living Situation: With spouse/s.o. Social History Notes: She completes all activities of daily living by herself including cooking, dressing herself, paying the bills, and going to the bathroom. She does hire someone to clean her floors since she is unable to do due to the discomfort it causes her. She did use tobacco when she was in college nearly 50 years ago, but has quit since. She only drinks alcohol in social situations. - POLST Patient has POLST: No POLST Status: Full Code Meds/Allgy - Home Medications Home Medications: Ambulatory Orders Medication Instructions Recorded Confirmed Calcium Carbonate [Tums (Calcium 500 mg PO Q48H 07/07/22 07/07/22 Carbonate 500mg)] [place]-3/Dha/Epa/Fish Oil [Fish Oil 1 cap PO Q48H 07/07/22 07/07/22 1,000 mg Softgel] Sertraline [Zoloft] 50 mg PO DAILY 07/07/22 07/07/22 amLODIPine [Norvasc] 1 tab PO HS 07/07/22 07/07/22 lisinopriL [Zestril] 5 mg PO HS 07/07/22 07/07/22 - Allergies Allergies/Adverse Reactions: Allergies Allergy/AdvReac Type Severity Reaction Status Date / Time Sulfa (Sulfonamide Allergy Unknown Verified 06/18/21 12:25 Antibiotics) Review of Systems - Constitutional Constitutional: denies: Fever - Eyes Eyes: reports: Dipolpia. denies: Blurred vision, Vision loss - Cardiovascular Cariovascular: denies: Chest pain - Respiratory Respiratory: denies: SOB at rest - Gastrointestinal Gastrointestinal: denies: Abdominal pain, Nausea, Vomiting - Musculoskeletal Musculoskeletal: denies: Muscle pain - Neurological Neurological: reports: Focal weakness (Left arm and left leg weakness are present following stroke in 2020). denies: Headache, Dizziness - All Other Systems All Other Systems: reports: Reviewed and negative Exam - Vital Signs Reviewed Vital Signs: Yes Vital Signs: Vital Signs x48h Temp Pulse Pulse Resp BP BP Pulse Ox 07/07/22 14:04 36.7 C 67 18 152/91 H 96 07/07/22 12:13 71 14 140/82 H 99 07/07/22 11:56 70 18 118/101 H 97 07/07/22 11:19 70 14 151/89 H 99 07/07/22 10:48 63 17 140/92 H 99 07/07/22 10:04 37.0 C 75 19 148/91 H 100 - Physical Exam General Appearance: positive: No acute distress, Alert Eyes Bilateral: positive: Normal inspection, PERRL, EOMI, No lid inflammation, Conjunctivae nml, No scleral icterus ENT: positive: No signs of dehydration Neck: positive: Nml inspection, No JVD. negative: Stiff neck Respiratory: positive: No respiratory distress, Breath sounds nml Cardiovascular: positive: Regular rate & rhythm Abdomen: positive: Non-tender, Nml bowel sounds, No distention Skin: positive: Color nml, No rash, Warm, Dry Extremities: positive: Nml appearance, No pedal edema, Other (Full flexion of bilateral legs, full strength of bilateral upper and lower extremities) Neurologic/Psychiatric: positive: Oriented x3, Sensation nml, Mood/affect nml, Facial droop (Mild facial droop on left side). negative: CN's nml (2-12) (Was asked to smile, but could only move right side of mouth. Remainder of exam without deficits.), Slurred/abnml speech (Speech on exam was clear and understandable) Conclusion/Plan - Problem List (1) Transient ischemic attack (TIA) Conclusion/Plan: Based on prior history of CVA in 2019 and symptoms today including facial droop, left sided weakness, and slurred speech that have since improved, she likely experienced a TIA. Head CT done during ED visit did not show any acute intracranial abnormalities. During exam, she did not have any slurring of speech, but did have mild left-sided facial droop that is not residual from previous CVA in 2019. She was able to answer all questions and was fully alert and oriented. An MRI was done and showed moderate atrophy and chronic ischemic change without acute infarct, acute hemorrhage or mass lesion along with old blood products in the right basal ganglia consistent with sequelae from remote intracranial hemorrhage. Two ECGs were done while she was in the ED, both of which showed likely sinus arrhythmias, but no a-fib. We will order echocard iogram to look at heart to look for possible etiologies of stroke and order telemetry to monitor cardiac rhythm activity overnight to look for possible A- fib. We will check lipid panel and discharge her with statin pending results of lipid panel. We will discharge her with aspirin for stroke prevention. (2) History of CVA (cerebrovascular accident) Conclusion/Plan: She had a CVA in 2019. She states that she was lying in bed when she suddenly was unable to get out of bed and her called 911 immediately as he recognized she was having a stroke. Upon discharge from the hospital, she had weakness in her left arm and leg and did rehab in a facility and then did outpatient PT and OT which helped to improve her strength. She did have pain under her left axilla and left thigh following stroke, but this pain improved with rehabilitation and time. She was also prescribed Lisinopril 5mg and Amlodipine 5mg daily for her blood pressure after previously being on hydrochlorothiazide. She was doing much better by summer 2020 and was able to go bird watching, go on boats, and go on short heights without any significant issues. One year after her stroke she continued to feel better, but one morning in May 2021 she was getting up in the middle of the night to use the bathroom, she fell and broke her left hip. The hip fracture was surgically rep aired and she was discharged home where she completed physical therapy with her , who is a physical therapist himself. She continued to do well with physical therapy but says she stopped her work outs this past summer and rejoined the gym a few weeks ago and was doing well until having her TIA symptoms today. About one month ago, she began cranial sacral therapy with Carlita Leary in [place] and says that the treatments helped and at one point, her left leg felt much better. She also started using music glove therapy to help with weakness of her left hand, but she has not used it enough to see if it has fully helped. (3) Hypertension Conclusion/Plan: She has a history of hypertension for which she takes Amlodipine 5mg and Lisinopril 5mg daily. She was started on these medications following CVA in 2019. Prior to CVA, she took Hydrochlorothiazide, but she says she wasn't compliant with the medication and only took it about 3 days a week. She says her blood pressure is well-managed and her last reading earlier this week was 130/80. Her blood pressure while in the ED was 118/101 but has come down to 128/69 after admission. We will continue to monitor her blood pressure. (4) Depression Conclusion/Plan: She has a history of depression that began after her stroke in 2019. She then began taking Sertraline, but stopped it on her own. She then began the sertraline again after her had surgery to help with her overall mood. - Lab Results Fish Bones: 07/07/22 10:11 07/07/22 10:11
--- NOTE | 2022-07-07 15:20 | PHARMACY PROGRESS NOTE ---
- Best Possible Medication History Admit Date and Time: 07/07/22 1231 Processed by: Pharmacy Medication History completed: Yes Patient Interview: Completed Secondary Source(s): Pharmacy records (Pt is good historian. Goes to [facility]. Uses OTC Sepia, liquid Vit D/K2 & Vit B12, CBD gummy HS and CBD cream.) As the person ultimately responsible for medication therapy, providers are able to order a medication from an existing home medication list in [facility] via the "Reconcile Routine" prior to Confirmation of that medication by vp software support. Such practice is discouraged except when the physician, in their clinical judgment, deems that a medical need exists for a medication without regard to previous use.
[2022-07-07] MEDS: SODIUM CHLORIDE FLUSH 0.9% 10 ML SYRINGE IVP SCH ×2 (18:16→23:59)
[2022-07-07] MEDS ORDERED: iohexoL-300 100 ML VIAL IVP ONE (18:16)
[2022-07-07] MEDS: ATORVASTATIN 40 MG TABLET PO SCH ×2 (21:12→22:22)
--- NOTE | 2022-07-08 07:55 | Discharge Plan ---
Discharge Plan Problem Reviewed?: Yes Disposition: Home, Self Care Condition: Stable Diet: Low Sodium Activity Restrictions: Activity as Tolerated Shower Restrictions: No Driving Restrictions: No Instruction Topics: TIA, Transient Ischemic Attack Dc Health Concerns: You presented to our emergency room because you developed left facial droop, slurred speech in the middle of your work-up with your principal trainer. You underwent a complete stroke work-up in the emergency room with consultation done from [facility] stroke through [facility]. CT of the head with an angiogram dye study of all the arteries in your neck and head were acceptable. No new stroke. MRI of the head which is a more sensitive test for stroke showed the old changes of a previous hemorrhagic stroke, a shrunken brain compatible with your age, and hardening of the arteries compatible with your age but no new stroke. Overnight there were no arrhythmias. At the time of discharge, you have had an echocardiogram but we do not have the final report yet. Plan of Treatment: At this time there are no major changes in your medication. The most we would recommend is an 81 mg aspirin a day. In the past you had what we call a "hemorrhagic" stroke. This time your symptoms were more of something called on a "ischemic" stroke. This is where hardening of the arteries occurs in the arteries get smaller and harder. Making sure that your cholesterol is low as possible, that you do not smoke, that you do not drink to excess, and that you exercise on a regular basis is the mainstay of lifestyle management for this type of stroke. Please see your primary care provider in follow-up. Your echocardiogram was done right before you were discharged and the final report will not be available till tomorrow. Please make sure your primary care provider sees that final report. Care Goals: At this point in time it is strictly to modify your lifestyle risk with regards to risk of stroke. We think you are already doing a fantastic job in that regard. Besides giving you an aspirin at this time, there is not much more to reduce your risk. You will need to discuss with neurology or primary care provider if aspirin is a good choice for you. While it is a good treatment for ischemic stroke prevention, it is not such a good treatment and someone has had a hemorrhagic stroke in the past. Assessment: Patient is alert, oriented, and is anxious to leave the hospital. We will follow through with her primary care provider No Smoking: If you smoke, Please STOP! Call for help. Follow-up with: Nenita Rao MD [Primary Care Provider] -
[2022-07-08 08:27] LABS: CHOL/HDL RATIO 4.5 (<4.4); CHOLESTEROL 192 mg/dL; HDL CHOLESTEROL 43 mg/dL; LDL CHOLESTEROL,CALCULATED 130 mg/dL; TRIGLYCERIDES 95 mg/dL; VLDL CHOLESTEROL 19 mg/dL
[2022-07-08] MEDS: SODIUM CHLORIDE FLUSH 0.9% 10 ML SYRINGE IVP SCH (09:03)
[2022-07-08] MEDS: ASPIRIN CHEW 81 MG TABLET PO SCH (09:03)
[2022-07-08 12:59] VITALS: BP 147/77
--- NOTE | 2022-07-08 16:24 | PROVIDER PROGRESS NOTE ---
Subjective - Prog Note Date Prog Note Date: 07/08/22 Prog Note Time: 16:22 - Subjective Subjective: She has had complete resolution of all of her symptomatology. She even managed to do an hour of yoga in her bed. 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 Echocardiogram was lasting to be done and she cannot be discharged. Final report is pending. Current Medications - Current Medications Current Medications: Active Medications Acetaminophen (Acetaminophen 325 Mg Tablet) 650 mg PO Q4HR PRN PRN Reason: Pain 1 to 4, or Fever Last Admin: 07/07/22 22:22 Dose: 650 mg Aspirin (Aspirin Chew 81 Mg Tablet) 81 mg PO DAILY [facility] Last Admin: 07/08/22 09:03 Dose: 81 mg Atorvastatin Calcium (Atorvastatin 40 Mg Tablet) 40 mg PO QPM [facility] Last Admin: 07/07/22 22:22 Dose: 40 mg Ondansetron HCl (Ondansetron Odt 4 Mg Tablet) 4 mg TL Q6HR PRN PRN Reason: Nausea / Vomiting Ondansetron HCl (Ondansetron 4 Mg/2 Ml Vial) 4 mg IVP Q6HR PRN PRN Reason: Nausea / Vomiting Oxycodone HCl (Oxycodone 5 Mg Tablet) 5 mg PO Q4HR PRN PRN Reason: Pain 5 to 7 Sodium Chloride (Sodium Chloride Flush 0.9% 10 Ml Syringe) 10 ml IVP PRN PRN PRN Reason: NEEDED PER PROVIDER ORDERS Last Admin: 07/07/22 23:59 Dose: 10 ml Sodium Chloride (Sodium Chloride Flush 0.9% 10 Ml Syringe) 10 ml IVP 0100,0900,1700 [facility] Last Admin: 07/08/22 09:03 Dose: 10 ml Calcium Carbonate [Tums (Calcium Carbonate 500mg)] 500 mg PO Q48H 07/07/22 [place]-3/Dha/Epa/Fish Oil [Fish Oil 1,000 mg Softgel] 1 cap PO Q48H 07/07/22 Sertraline [Zoloft] 50 mg PO DAILY 07/07/22 amLODIPine [Norvasc] 1 tab PO HS 07/07/22 lisinopriL [Zestril] 5 mg PO HS 07/07/22 Objective - Vital Signs/Intake & Output Reviewed Vital Signs: Yes Vital Signs: Vital Signs x48h Temp Pulse Pulse Resp BP BP Pulse Ox 07/08/22 12:57 36.4 C L 72 16 147/77 H 96 07/08/22 10:13 108 H 130/85 H 07/08/22 10:10 108 H 130/85 H Intake & Output: Intake & Output 07/05/22 07/06/22 07/07/22 07/08/22 23:59 23:59 23:59 23:59 Intake Total 700 500 Balance 700 500 - Objective General Appearance: positive: No acute distress, Alert, Other (Thin white female who looks stated age.) Eyes Bilateral: positive: PERRL, EOMI ENT: positive: Other (Very slight left nasolabial fold softening in comparison to the right but that is chronic for her) Neck: positive: No JVD. negative: Stiff neck Respiratory: positive: No respiratory distress. negative: Wheezes, Rales, Rhonchi Cardiovascular: positive: Regular rate & rhythm Abdomen: positive: Non-tender, No organomegaly, Nml bowel sounds, No distention Skin: positive: Warm, Dry Extremities: positive: Full ROM, No pedal edema Neurologic/Psychiatric: positive: Oriented x3, CN's nml (2-12), Motor nml, Facial droop (Very subtle, chronic residual of previous stroke. Just a slight softening of the left nasolabial fold. Speech is now completely normal) - Lab Results Fish Bones: 07/07/22 10:11 07/07/22 10:11 Other Labs: Lab Results x24hrs 07/08/22 Range/Units 08:05 Triglycerides 95 ( - 149) mg/dL Cholesterol 192 ( - 199) mg/dL LDL Cholesterol, Calc 130 H ( - 129) mg/dL VLDL Cholesterol 19 mg/dL HDL Cholesterol 43 L (60 - ) mg/dL LDL/HDL Ratio 3.0 (<4.4) Cholesterol/HDL Ratio 4.5 (<4.4) Assessment/Plan - Problem List (1) Transient ischemic attack (TIA) Impression: Conclusion/Plan: A head CT was done in the ER. CT angiogram was also done. While she has diffuse microvascular changes and a loss of volume overall, there is no acute stroke changes. Overnight telemetry showed no arrhythmias. We were looking for atrial fibrillation and none was seen. Echocardiogram was done right before discharge and it is a preliminary report where nothing is found. No ASD or VSD. She is now stable for discharge. The most I will send her home on is an aspirin a day. However aspirin is associated with increased risk of hemorrhagic stroke and she may opt not to do this. Fasting lipid panel showed triglycerides of 95, cholesterol 192, LDL 130, HDL 43. She may gain a slight percentage benefit of reducing her stroke risk by taking a low-dose statin. She is stable for discharge. (2) History of CVA (cerebrovascular accident) Conclusion/Plan: She had a CVA in 2019. She states that she was lying in bed when she suddenly was unable to get out of bed and her called 911 immediately as he recognized she was having a stroke. Upon discharge from the hospital, she had weakness in her left arm and leg and did rehab in a facility and then did outpatient PT and OT which helped to improve her strength. She did have pain under her left axilla and left thigh following stroke, but this pain improved with rehabilitation and time. She was also prescribed Lisinopril 5mg and Amlodipine 5mg daily for her blood pressure after previously being on hydrochlorothiazide. She was doing much better by summer 2020 and was able to go bird watching, go on boats, and go on short heights without any significant issues. One year after her stroke she continued to feel better, but one morning in May 2021 she was getting up in the middle of the night to use the bathroom, she fell and broke her left hip. The hip fracture was surgically repaired and she was discharged home where she completed physical therapy with her , who is a physical therapist himself. She continued to do well with physical therapy but says she stopped her work outs this past summer and rejoined the gym a few weeks ago and was doing well until having her TIA symptoms today. About one month ago, she began cranial sacral therapy with Carlita Leary in [place] and says that the treatments helped and at one point, her left leg felt much better. She also started using music glove therapy to help with weakness of her left hand, but she has not used it enough to see if it has fully helped. (3) Hypertension Conclusion/Plan: She has a history of hypertension for which she takes Amlodipine 5mg and Lisinopril 5mg daily. She was started on these medications following CVA in 2019. Prior to CVA, she took Hydrochlorothiazide, but she says she wasn't comp liant with the medication and only took it about 3 days a week. She says her blood pressure is well-managed and her last reading earlier this week was 130/80. Her blood pressure while in the ED was 118/101 but has come down to 128/69 after admission. At discharge she is 147/77 which is the highest she has been all day long. (4) Depression Conclusion/Plan: She has a history of depression that began after her stroke in 2019. She then began taking Sertraline, but stopped it on her own. She then began the sertraline again after her had surgery to help with her overall mood.
== END 2022-07-08 16:45 | disposition home or self-care (01) ==
LOC: ED 09:54 → MS2 12:31
PROVIDERS: ADMIT Specialist; ATTEND Specialist
DX: G45.9 Transient cerebral ischemic attack, unspecified (principal); R47.81 Slurred speech; R53.1 Weakness; R29.810 Facial weakness; I69.344 Monoplegia of lower limb following cerebral infarction affecting left non-dominant side; I10 Essential (primary) hypertension; F32.A Depression, unspecified; Z20.822 Contact with and (suspected) exposure to COVID-19; Z79.899 Other long term (current) drug therapy
CPT/HCPCS: 36415; 70450; 70496; 70498; 70551; 80053; 80061; 83690; 83721; 85025; 85610; 87635; 93005; 93306; 97161; 97165; 99284; 99285; A9270; G0378; Q9967

== ENCOUNTER 2022-07-20 14:50 | Outpatient (CLI) | payer MEDICARE ==
--- NOTE | 2022-07-20 16:50 | Ultrasound Report ---
PROCEDURE: Pelvic w/Transvaginal INDICATIONS: PELVIC PAIN TECHNIQUE: Real-time scanning was performed of the pelvic organs, with image documentation. Additional endovagi nal scanning was necessary due to incomplete visualization of the adnexal and endometrial structures by transabdominal scanning. COMPARISON: None. FINDINGS: Uterus: Uterus is retroverted and normal in size at 7.6 x 2.9 x 4.7 cm. The myometrium is heterogen ous. The endometrium measures 1.8 mm in combined thickness. Right anterior intramural fibroid measu res 1.0 x 0.9 x 1.0 Ovaries: The right ovary measures 2.6 x 0.8 x 1.2 cm, with a calculated ovarian volume of 1.2 cc. T he left ovary measures 2.7 x 1.6 x 1.1 cm, with a calculated ovarian volume of 1.5 cc. The ovaries h ave a normal sonographic appearance. Less than 12 follicles can be seen in each ovary. No adnexal m asses are seen. Other: No pathologic free abdominal or pelvic fluid. IMPRESSION: Small intramural uterine fibroid Reviewed by: Ruddy Leong MD on 07/20/2022 3:49 PM AKST Approved by: Ruddy Leong MD on 07/20/2022 3:49 PM AKST Station ID: [id number]
== END 2022-07-20 14:51 | disposition home or self-care (01) ==
LOC: DI 14:50
PROVIDERS: ATTEND Internal Medicine
DX: D25.1 Intramural leiomyoma of uterus (principal)

== ENCOUNTER 2023-02-11 08:00 | Outpatient (CLI) | payer MEDICARE ==
[2023-02-11 21:01] LABS: BACTERIAL VAGINOSIS DNA NEGATIVE (NEGATIVE); CANDIDA GLABRATA DNA NEGATIVE (NEGATIVE); CANDIDA GROUP DNA NEGATIVE (NEGATIVE); CANDIDA KRUSEI DNA NEGATIVE (NEGATIVE); TRICHOMONAS VAGINALIS DNA NEGATIVE (NEGATIVE)
[2023-02-11 22:54] LABS: CHLAMYDIA TRACHOMATIS DNA NEGATIVE (NEGATIVE); NEISSERIA GONORRHOEAE DNA NEGATIVE (NEGATIVE)
== END 2023-02-11 23:59 | disposition home or self-care (01) ==
LOC: LAB.R 08:00
PROVIDERS: ATTEND Nurse Practitioner
DX: N89.8 Other specified noninflammatory disorders of vagina (principal); Z11.3 Encounter for screening for infections with a predominantly sexual mode of transmission
CPT/HCPCS: 81514; 87070; 87077; 87491; 87591; 87661

== ENCOUNTER 2023-05-13 18:39 | Emergency (ER) | payer MEDICARE ==
[2023-05-13 18:52] VITALS: BP 136/114; O2SAT 97
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
--- NOTE | 2023-05-13 19:42 | XRAY Report ---
PROCEDURE: Chest 1 View X-Ray INDICATIONS: chest pain TECHNIQUE: One view of the chest was acquired. COMPARISON: None. FINDINGS: Surgical changes and devices: None. Lungs and pleura: No pleural effusions or pneumothorax. Lungs are clear. Mediastinum: Mediastinal contours appear normal. Heart size is normal. Bones and chest wall: No suspicious bony lesions. Overlying soft tissues appear unremarkable. IMPRESSION: No acute cardiopulmonary process. Reviewed by: Lebron Van MD on 05/13/2023 7:41 PM PDT Approved by: Lebron Van MD on 05/13/2023 7:41 PM PDT Station ID: [id number]
== END 2023-05-13 20:52 | disposition home or self-care (01) ==
LOC: ED 18:39
DX: R07.89 Other chest pain (principal)
CPT/HCPCS: 93005; 99283

== ENCOUNTER 2023-07-23 09:40 | Outpatient (CLI) | payer MEDICARE ==
[2023-07-23 11:16] LABS: CREATININE 0.7 mg/dL (0.6-1.3)
[2023-07-23] MEDS ORDERED: iohexoL-300 100 ML VIAL IVP ONE (18:15)
--- NOTE | 2023-07-24 13:18 | CT Report ---
PROCEDURE: ABDOMEN/PELVIS W INDICATIONS: ABD PAIN CONTRAST: 100ml omnipaque 300 TECHNIQUE: After the administration of oral and intravenous contrast, 5 mm thick sections acquired from the diap hragms to the symphysis. 5 mm thick coronal and sagittal reformats were acquired. For radiation dos e reduction, the following was used: automated exposure control, adjustment of mA and/or kV accordin g to patient size. COMPARISON: None FINDINGS: Image quality: Excellent. Lung bases and heart: No suspicious pulmonary nodule or consolidation. Minimal dependent atelectasis. No basilar effusion. No hiatal hernia. Visualized heart is unremarkable. Liver: No solid mass. Gallbladder and biliary tree: Unremarkable. Spleen: No splenomegaly. Pancreas: No pancreatic ductal dilation. Adrenals: No adrenal nodule. Kidneys and ureters: No hydronephrosis. No renal cystic lesion which requires follow up. No solid mas s. Bowel and peritoneum: Stomach appears grossly normal. Small and large bowel is normal in caliber, wit hout obstruction. Normal appendix (/, 5/16). Sigmoid and scattered colonic diverticulosis, without diverticulitis. No pneumatosis, pneumoperitoneum or portal venous gas. Lymph nodes: No central or retroperitoneal adenopathy. Vessels: No infrarenal aortic aneurysm. Patent portal, splenic and bilateral renal veins. Mild calcif ication of the abdominal aorta and branch vessels. PELVIS Reproductive organs: Unremarkable. Bladder: No abnormal wall thickening, accounting for underdistension. Pelvic lymph nodes: No pelvic adenopathy by size criteria. Bones: No acute fracture. No aggressive appearing lytic or blastic osseous lesion. Dextroconvex curva ture of the spine with apex at L2. Partially visualized left intramedullary aminta and locking screw fix ation. Marked degenerative changes at L5-S1 with osteophytosis, disc height loss and endplate scleros is. Remainder of the spine demonstrates moderate multilevel degenerative changes. Other: Tiny fat-containing umbilical hernia. No inguinal hernia. IMPRESSION: 1.No acute pathology in the abdomen or pelvis. 2.Sigmoid and colonic diverticulosis, without diverticulitis. Reviewed by: Shivani Eden MD on 07/24/2023 1:17 PM PST Approved by: Shivani Eden MD on 07/24/2023 1:17 PM PST Station ID: [id number]
== END 2023-07-23 09:41 | disposition home or self-care (01) ==
LOC: LAB 09:40
PROVIDERS: ATTEND Internal Medicine
DX: R10.9 Unspecified abdominal pain (principal); Z79.899 Other long term (current) drug therapy; K57.30 Diverticulosis of large intestine without perforation or abscess without bleeding
CPT/HCPCS: 36415; 74177; 82565; Q9967

== ENCOUNTER 2024-02-15 08:16 | Outpatient (CLI) | payer MEDICARE ==
--- NOTE | 2024-02-16 10:33 | Mammography Report ---
BILATERAL DIGITAL SCREENING MAMMOGRAM 3D/2D: 02/15/2024 CLINICAL: Routine screening. Comparison is made to exams dated: 03/15/2022 mammogram, 02/19/2021 mammogram, and 04/22/2016 mammogram - [facility]. Both breasts are almost entirely fatty (category a/<25% glandular tissue). No significant masses, calcifications, or other findings are seen in either breast. There has been no significant interval change. IMPRESSION: NEGATIVE There is no mammographic evidence of malignancy. A 1 year screening mammogram is recommended. Based on the Tyrer Cuzick model (a risk assessment model) the patient's lifetime risk is 3.3% and her 10 year risk is 2.7%. According to the ACR, ACS, and NCCN guidelines, an annual breast MRI exam fabi g with mammogram is recommended if the patient's lifetime risk is 20% or greater. This exam was interpreted at Station ID: [id number]. NOTE: For mammograms, a report in lay terms will be sent to the patient. Approximately 15% of breast malignancies will not be visualized mammographically. In the management of a palpable breast mass, a negative mammogram must not discourage biopsy of a clinically suspicious lesion. Electronically Signed By: Sue graf/rodrick:02/15/2024 14:22:32 letter sent: No_Letter ACR BI-RADS Category 1: Negative 3341F PARENCHYMAL PATTERN: (F) - The breast(s) demonstrate(s) diffuse fatty replacement. BI-RADS CATEGORY: (1) - 1 RECOMMENDATION: (ANNUAL) - Recommend routine annual screening mammography. [id number] 1 year screening LATERALITY: (B)
== END 2024-02-15 08:17 | disposition home or self-care (01) ==
LOC: DI 08:16
DX: Z12.31 Encounter for screening mammogram for malignant neoplasm of breast (principal)

== ENCOUNTER 2024-02-21 15:14 | Outpatient (CLI) | payer MEDICARE ==
--- NOTE | 2024-02-21 17:59 | XRAY Report ---
PROCEDURE: Hip w/Pelvis 2-3V LT INDICATIONS: LEFT HIP PAIN TECHNIQUE: 3 views of the hip were acquired. COMPARISON: CT abdomen and pelvis 07/23/2023. Left hip radiographs 06/18/2021. FINDINGS: Bones: Left femur intramedullary nail with screw fixation. No fractures or dislocations. No suspici ous bony lesions. Soft tissues: No suspicious soft tissue calcifications or masses. IMPRESSION: No acute fracture identified. Stable appearance of the left femur intramedullary nail with screw fixation. Reviewed by: Bruce Siegel MD on 02/21/2024 5:57 PM PDT Approved by: Bruce Siegel MD on 02/21/2024 5:57 PM PDT Station ID: [id number]
== END 2024-02-21 15:15 | disposition home or self-care (01) ==
LOC: DI 15:14
PROVIDERS: ATTEND Internal Medicine
DX: M25.552 Pain in left hip (principal); Z96.89 Presence of other specified functional implants

== ENCOUNTER 2024-04-11 12:21 | Outpatient (CLI) | payer MEDICARE ==
[2024-04-11 12:54] LABS: CREATININE 0.6 mg/dL (0.6-1.3)
[2024-04-11] MEDS: iohexoL-300 100 ML VIAL IVP ONE (15:04)
[2024-04-11] MEDS: DIATRIZOATE MEGLU/DIATRIZO SOD 30 ML BOTTLE PO ONE (15:04)
--- NOTE | 2024-04-12 15:16 | CT Report ---
PROCEDURE: Abdomen/Pelvis W INDICATIONS: ABDOMINAL PAIN, LLQ ABDOMINAL PAIN CONTRAST: 100ml [id number] TECHNIQUE: After the administration of intravenous contrast, a CT scan of the abdomen and pelvis was performed. Images were recorded and evaluated at appropriate window settings. Reformats: coronal and sagittal. F or radiation dose reduction, the following was used: automated exposure control, adjustment of mA and /or kV according to patient size. COMPARISON: CT abdomen and pelvis on July 23, 2023. FINDINGS: Image quality: Diagnostic. Lower chest: Dependent atelectasis. Liver: No solid mass. Diffuse hypoattenuation of the liver. Gallbladder: No radiopaque stones or wall thickening. Biliary tree: No intrahepatic or extrahepatic dilation, accounting for age. Spleen: No splenomegaly. Pancreas: No pancreatic ductal dilation. Adrenals: No adrenal nodule. Kidneys and ureters: No hydronephrosis. No renal cystic lesion which requires follow up. No solid mas s. Stomach, bowel and peritoneum: No hiatal hernia. Stomach appears grossly normal. Small and large ebony l is normal in caliber, without obstruction. Normal appendix (2/117). Scattered colonic diverticulosi s, without diverticulitis. Above-average colonic stool burden. Lymph nodes: No central or retroperitoneal adenopathy. Vessels: No infrarenal aortic aneurysm. Patent portal vein. Mild to moderate calcification of the abd ominal aorta. PELVIS Reproductive organs: Unremarkable. Bladder: No abnormal wall thickening, accounting for underdistention. Pelvic lymph nodes: No pelvic adenopathy by size criteria. Bones: No aggressive osseous abnormality. Left hip partially visualized intramedullary aminta and interl ocking screw fixation. Marked multilevel degenerative changes of the spine, worse at L5-S1. Mild dext roconvex curvature of the lumbar spine with apex at L2. Other: Tiny fat-containing umbilical hernia. IMPRESSION: 1.No acute pathology in the abdomen or pelvis. Above-average colonic stool burden which may correlate with constipation. 2.Diverticulosis, without diverticulitis. 3.Diffuse hypoattenuation of the liver which is nonspecific and may be seen in the setting of steatos is. Reviewed by: Shivani Eden MD on 04/12/2024 3:15 PM PDT Approved by: Shivani Eden MD on 04/12/2024 3:15 PM PDT Station ID: [id number]
== END 2024-04-11 12:22 | disposition home or self-care (01) ==
LOC: LAB 12:21
PROVIDERS: ATTEND Internal Medicine
DX: R10.32 Left lower quadrant pain (principal); R10.9 Unspecified abdominal pain; K57.30 Diverticulosis of large intestine without perforation or abscess without bleeding; R93.2 Abnormal findings on diagnostic imaging of liver and biliary tract; Z79.899 Other long term (current) drug therapy
CPT/HCPCS: 36415; 82565

== ENCOUNTER 2024-05-02 07:17 | Emergency (ER) | payer MEDICARE ==
[2024-05-02 07:33] VITALS: O2SAT 97
--- NOTE | 2024-05-02 08:30 | XRAY Report ---
PROCEDURE: Chest 1V INDICATIONS: cough/sob TECHNIQUE: One view of the chest was acquired. COMPARISON: 05/13/2023. FINDINGS: Surgical changes and devices: None. Lungs and pleura: No pleural effusions or pneumothorax. Lungs are clear. Mediastinum: Mediastinal contours appear normal. Heart size is normal. Bones and chest wall: No suspicious bony lesions. Overlying soft tissues appear unremarkable. IMPRESSION: No acute cardiopulmonary process. Reviewed by: Randall Leonard MD on 05/02/2024 8:29 AM PDT Approved by: Randall Leonard MD on 05/02/2024 8:29 AM PDT Station ID: [id number]
[2024-05-02 08:31] LABS: B. PARAPERTUSSIS- RESP PCR PAN NOT DETECTED; B. PERTUSSIS- RESP PCR PANEL NOT DETECTED; C. PNEUMONIAE- RESP PCR PANEL NOT DETECTED; CORONAVIRUS 229E-RESP PCR NOT DETECTED; CORONAVIRUS HKU1-RESP PCR NOT DETECTED; CORONAVIRUS NL63-RESP PCR NOT DETECTED; CORONAVIRUS OC43-RESP PCR NOT DETECTED; HUMAN METAPNEUMOVIRUS NOT DETECTED; INFLUENZA A- RESP PCR PANEL NOT DETECTED; INFLUENZA B - RESP PCR PANEL NOT DETECTED; M. PNEUMONIAE- RESP PCR PANEL NOT DETECTED; PARAINFLUENZA VIRUS 1 NOT DETECTED; PARAINFLUENZA VIRUS 2 NOT DETECTED; PARAINFLUENZA VIRUS 3 NOT DETECTED; PARAINFLUENZA VIRUS 4 NOT DETECTED; RHINOVIRUS/ENTEROVIRUS NOT DETECTED; RSV- RESP PCR PANEL NOT DETECTED
[2024-05-02 08:33] LABS: SARS-CoV-2 -RESP PCR PANEL DETECTED
--- NOTE | 2024-05-02 09:29 | ED Physician Documentation ---
History of Present Illness - Stated complaint Stated Complaint: SORE THROAT, FLORES, SOA, URINATION - Chief complaint Chief Complaint: General - History obtained from History obtained from: Patient - Additonal information Additional information: The patient comes to the emergency department chief complaint of headache, sore throat, cough, and fatigue for the last 4 days. She was exposed to a friend who just gotten over COVID but was no longer symptomatic, shortly before onset of symptoms. The patient states her main concern is that her chest feels "sick" and heavy and she is concerned that she may have pneumonia. No fevers. She has had chills. She was urinating more frequently for the first couple of nights but this is resolved. No dysuria. No other complaints at this time. 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 : None HEENT: None Psych: Depression Musculoskeletal: None Derm: None - Past Surgical History Past Surgical History: No Ortho: Hip replacement - Present Medications Home Medications: Ambulatory Orders Medication Instructions Recorded Confirmed Calcium Carbonate [Tums (Calcium 500 mg PO Q48H 07/07/22 05/13/23 Carbonate 500mg)] [place]-3/Dha/Epa/Fish Oil [Fish Oil 1 cap PO Q48H 07/07/22 05/13/23 1,000 mg Softgel] amLODIPine [Norvasc] 1 tab PO HS 07/07/22 05/13/23 lisinopriL [Zestril] 5 mg PO HS 07/07/22 05/13/23 - Allergies Allergies/Adverse Reactions: Allergies Allergy/AdvReac Type Severity Reaction Status Date / Time Sulfa (Sulfonamide Allergy Unknown Verified 05/02/24 07:30 Antibiotics) - Social History Does the pt smoke?: No Smoking Status: Never smoker Does the pt drink ETOH?: No Does the pt have substance abuse?: No - Immunizations Immunizations are current?: Yes - POLST Patient has POLST: No POLST Status: Full Code PD ED PE NORMAL - Vitals Vital signs reviewed: Yes - General General: Alert and oriented X 3, No acute distress, Well developed/nourished - HEENT HEENT: Atraumatic, EOMI, Moist mucous membranes - Neck Neck: Supple, no meningeal sign - Cardiac Cardiac: RRR, No murmur - Respiratory Respiratory: No respiratory distress, Clear bilaterally - Abdomen Abdomen: Soft, Non tender, Non distended - Derm Derm: Normal color, Warm and dry, No rash - Extremities Extremities: No deformity, No edema - Neuro Neuro: Alert and oriented X 3 - Psych Psych: Normal mood, Normal affect Results - Vitals Vitals: Oxygen O2 Source Room air - Labs Labs: Laboratory Tests 05/02/24 07:30 Nasal Adenovirus (PCR) NOT DETECTED Nasal B. parapertussis DNA (PCR) NOT DETECTED Nasal Coronavir 229E PCR NOT DETECTED Nasal Coronavir HKU1 PCR NOT DETECTED Nasal Coronavir NL63 PCR NOT DETECTED Nasal Coronavir OC43 PCR NOT DETECTED Nasal Enterovir/Rhinovir PCR NOT DETECTED Nasal Influenza B PCR NOT DETECTED Nasal Influenza A PCR NOT DETECTED Nasal Parainfluen 1 PCR NOT DETECTED Nasal Parainfluen 2 PCR NOT DETECTED Nasal Parainfluen 3 PCR NOT DETECTED Nasal Parainfluen 4 PCR NOT DETECTED Nasal RSV (PCR) NOT DETECTED Nasal B.pertussis DNA PCR NOT DETECTED Nasal C.pneumoniae (PCR) NOT DETECTED Fabrice Human Metapneumo PCR NOT DETECTED Nasal M.pneumoniae (PCR) NOT DETECTED Nasal SARS-CoV-2 (PCR) DETECTED A - Rads (name of study) Chest x-ray Relevant Findings:: Final report received, See rad report (Negative) PD Medical Decision Making - ED course Complexity details: reviewed results, re-evaluated patient, considered differential, d/w patient ED course: The patient's main concern was that she might have pneumonia. I obtained a ches t x-ray and this was negative. The patient was stable for discharge. We have discussed symptomatic management at home as well as usual indications for return. Departure - Departure Disposition: 01 Home, Self Care Clinical Impression: COVID Condition: Stable Instructions: ED Viral Syndrome Comments: Your x-ray looks great. Your viral panel is positive for COVID. If you feel you are dehydrated, you should drink more water. If you are not vomiting or having diarrhea, there is no reason that you should not be able to rehydrate by drinking. There is no specific treatment that is going to help your COVID get better faster at this point. You should get plenty of rest and drink at least 8 to 10 cups of water every day. Eat nutritious food and take ibuprofen and Tylenol if needed for fevers or aches. In general, COVID last anywhere from few days to a couple of weeks, symptom osborne. You may be as active as you wish, if you feel up to it. Forms: PCP List Discharge Date/Time: 05/02/24 09:47
[2024-05-02 09:50] VITALS: BP 90/67
== END 2024-05-02 09:47 | disposition home or self-care (01) ==
LOC: ED 07:17
DX: U07.1 COVID-19 (principal)
CPT/HCPCS: 87633; 99283